=== PATIENT | female | born 1980 | race Caucasian/White ===

== ENCOUNTER 2016-07-23 00:09 | Emergency (ER) | payer BC, OTHER ==
[~2016-07-23] VITALS: Ht 154.9 cm; Wt 68.7 kg
[~2016-07-23 00:09] MED LIST: FOLI800T; IRON1TAB6; PRENTAB26 PO
[2016-07-23 00:19] VITALS: TEMP 37.4; Ht 154.9 cm; Wt 68.7 kg
[2016-07-23] MEDS ORDERED: ONDANSETRON INJ 2 MG/ML 2 ML VIAL IV STA (00:24)
[2016-07-23] MEDS ORDERED: SODIUM CHLORIDE 0.9% 1000ML 1,000 ML IV STA (00:24)
[2016-07-23] MEDS ORDERED: MoRPHine SULFATE 4 MG/ML 1 ML CARP\\VIAL IV STA (00:31)
[2016-07-23 00:47] LABS: BASO % 0.2 %; BASO ABS # 0.02 K/uL (0-0.2); COMPLETE YES; EOS % 0.4 %; HEMATOCRIT 44.8 % (37-47); IG% 0.2 %; LYMPH % 12.5 %; LYMPH ABS # 1.19 K/uL (1.2-3.4); MEAN CORPUSCULAR HEMOGLOBIN 30.9 pg (25-34); MEAN CORPUSCULAR HGB CONC 35.5 g/dl (32-36); MEAN PLATELET VOLUME 10.1 fL (7.4-10.4); NEUT % 81.7 %; PLATELET COUNT 270 K/uL (130-400); RED BLOOD COUNT 5.15 M/uL (4.2-5.4); WHITE BLOOD COUNT 9.52 K/uL (4.8-10.8)
[2016-07-23 00:54] LABS: URINE APPEARANCE CLEAR (CLEAR); URINE BILIRUBIN NEG (NEG); URINE COLOR DK YELLOW; URINE NITRITE NEG (NEG); URINE PH 5.5 (4.5-7.5); URINE SPECIFIC GRAVITY 1.026 (1.000-1.030); UROBILINOGEN NEG (NEG); ZZUR CULT IF INDIC CLEAN CATCH NO
[2016-07-23 01:06] LABS: ALT/SGPT 28 U/L (12-78); AST/SGOT 18 U/L (15-37); BLOOD UREA NITROGEN 10 mg/dl (7-18); BUN/CREATININE RATIO 10.5 (10-20); CALCIUM 8.6 mg/dl (8.5-10.1); CARBON DIOXIDE 22 mmol/L (21-32); CHLORIDE 112 mmol/L (98-107); CREATININE 0.94 mg/dl (0.60-1.20); GLUCOSE 114 mg/dl (70-99); MAGNESIUM 1.9 mg/dl (1.8-2.4); POTASSIUM 3.7 mmol/L (3.5-5.1); SODIUM 146 mmol/L (136-145)
[2016-07-23 01:09] LABS: ALKALINE PHOSPHATASE 68 U/L (45-117)
[2016-07-23 01:11] LABS: MANUAL MICROSCOPIC REQUIRED? NO; REVIEW REQ? NO
[2016-07-23] MEDS ORDERED: PANTOprazole SOD 40 MG TAB PO STA (02:20)
[2016-07-23] MEDS ORDERED: LIDOCAINE HCL 2% VISC SOLN 20 ML UDC PO STA (02:20)
[2016-07-23] MEDS ORDERED: ALUMINUM/MAGNESIUM SUSP 30 ML UDC PO STA (02:20)
[2016-07-23] MEDS ORDERED: PANT40TA PO (02:29)
[2016-07-23] MEDS ORDERED: ONDANSETRON HOME PACK 4MG OD TAB PO ONE (02:30)
[2016-07-23 02:41] VITALS: BP 97/65; PULSE 96; O2SAT 95
--- NOTE | 2016-07-23 02:43 | EMERGENCY ROOM VISIT NOTE ---
History Report prepared by Scribe: Dirk Pabon Under the Supervision of: Dr. Soraida Mccarthy M.D. First contact with patient: 00:24 Chief Complaint: ABDOMINAL PAIN Stated Complaint: SEVERE PAIN UNDER RT RIB CAGE TO BACK AND SHOULDER History of Present Illness The patient is a 36 year old female who presents to the Emergency Room with complaints of worsening right abdominal pain beginning three days ago. She localizes the pain to under her right ribcage and states that the pain wraps around her back and up her left shoulder. She also complains of vomiting, and chills. The patient admits to "heavily drinking" alcohol tonight. She estimates that she typically drinks about once a month or so, but states that she drank tonight because she "had a very bad day". She states that she vomited about an hour and a half ago. The patient denies eating anything abnormal recently, and states that she has not had anything to eat today. She notes that she smokes about a half pack of cigarettes a day. Nothing has improved her pain. Source of History: patient Onset: three days ago Position: abdomen (under right ribcage) Timing: worsening Modifying Factors (Relieving): other (none) Associated Symptoms: + chills, + vomiting Review of Systems See HPI for pertinent positives & negatives. A total of 10 systems reviewed and were otherwise negative. Past Medical & Surgical Medical Problems: (1) section (2) Premature labor (3) Family History No pertinent family history stated. Social History Smoking Status: Current Every Day Smoker Housing Status: lives with family Current/Historical Medications Scheduled Pantoprazole (Protonix), 40 MG PO DAILY Allergies Coded Allergies: Eggs or Egg-derived Products (Verified Allergy, Severe, SWOLLEN FACE/ TONGUE, 07/23/16) Penicillins (Verified Allergy, Severe, HIVES, 07/23/16) Cefaclor (Verified Allergy, Intermediate, RASH, 07/23/16) Physical Exam Vital Signs Date Time Temp Pulse Resp B/P Pulse Ox O2 Delivery O2 Flow Rate FiO2 07/23/16 02:41 96 18 97/65 95 07/23/16 02:15 96 18 97/65 Room Air 07/23/16 00:19 37.4 126 20 102/67 95 Room Air Physical Exam Vital signs reviewed. General: Well-appearing female, in no significant distress. HEENT: No scleral icterus, PERRLA, neck supple. Atraumatic. Cardiovascular: Regular rate and rhythm, no extra sounds. Pulmonary: Clear to auscultation bilaterally, normal work of breathing. Abdomen: Soft, nondistended, positive bowel sounds. Tenderness to palpation of the RUQ. No rebound or guarding. Musculoskeletal: Atraumatic, no peripheral edema. Neurologic: Patient awake alert and oriented x 3, full strength in all 4 extremities. Cranial nerves 2 through 12 grossly intact. Skin: Warm, dry, no rash Medical Decision & Procedures ER Provider Diagnostic Interpretation: US results per statrad and my review. US RUQ: No gallstones. No GB wall thickening or pericholecystic fluid. No biliary dilation. Liver and right kidney are unremarkable. No free fluid. Laboratory Results 07/23/16 00:28 Red Blood Count 5.15, Mean Corpuscular Volume 87.0, Mean Corpuscular Hemoglobin 30.9, Mean Corpuscular Hemoglobin Concent 35.5, Mean Platelet Volume 10.1, Neutrophils (%) (Auto) 81.7, Lymphocytes (%) (Auto) 12.5, Monocytes (%) (Auto) 5.0, Eosinophils (%) (Auto) 0.4, Basophils (%) (Auto) 0.2, Neutrophils # (Auto) 7.77, Lymphocytes # (Auto) 1.19, Monocytes # (Auto) 0.48, Eosinophils # (Auto) 0.04, Basophils # (Auto) 0.02 07/23/16 00:28 Test 07/23/16 00:25 07/23/16 00:28 07/23/16 00:40 Urine Color DK YELLOW Urine Appearance CLEAR (CLEAR) Urine pH 5.5 (4.5-7.5) Urine Specific [place] 1.026 (1.000-1.030) Urine Protein NEG (NEG) Urine Glucose (UA) NEG (NEG) Urine Ketones NEG (NEG) Urine Occult Blood NEG (NEG) Urine Nitrite NEG (NEG) Urine Bilirubin NEG (NEG) Urine Urobilinogen NEG (NEG) Urine Leukocyte Esterase NEG (NEG) Urine Test NEG (NEG) White Blood Count 9.52 K/uL (4.8-10.8) Red Blood Count 5.15 M/uL (4.2-5.4) Hemoglobin 15.9 g/dL (12.0-16.0) Hematocrit 44.8 % (37-47) Mean Corpuscular Volume 87.0 fL (80-100) Mean Corpuscular Hemoglobin 30.9 pg (25-34) Mean Corpuscular Hemoglobin Concent 35.5 g/dl (32-36) Platelet Count 270 K/uL (130-400) Mean Platelet Volume 10.1 fL (7.4-10.4) Neutrophils (%) (Auto) 81.7 % Lymphocytes (%) (Auto) 12.5 % Monocytes (%) (Auto) 5.0 % Eosinophils (%) (Auto) 0.4 % Basophils (%) (Auto) 0.2 % Neutrophils # (Auto) 7.77 K/uL (1.4-6.5) Lymphocytes # (Auto) 1.19 K/uL (1.2-3.4) Monocytes # (Auto) 0.48 K/uL (0.11-0.59) Eosinophils # (Auto) 0.04 K/uL (0-0.5) Basophils # (Auto) 0.02 K/uL (0-0.2) RDW Standard Deviation 42.9 fL (36.4-46.3) RDW Coefficient of Variation 13.4 % (11.5-14.5) Immature Granulocyte % (Auto) 0.2 % Immature Granulocyte # (Auto) 0.02 K/uL (0.00-0.02) Anion Gap 12.0 mmol/L (3-11) Est Creatinine Clear Calc Drug Dose 74.0 ml/min Estimated GFR () 91.1 Estimated GFR (Non- 78.6 BUN/Creatinine Ratio 10.5 (10-20) Calcium Level 8.6 mg/dl (8.5-10.1) Magnesium Level 1.9 mg/dl (1.8-2.4) Total Bilirubin 0.2 mg/dl (0.2-1) Direct Bilirubin < 0.1 mg/dl (0-0.2) Aspartate Amino Transf (AST/SGOT) 18 U/L (15-37) Alanine Aminotransferase (ALT/SGPT) 28 U/L (12-78) Alkaline Phosphatase 68 U/L (45-117) Total Protein 7.7 gm/dl (6.4-8.2) Albumin 3.9 gm/dl (3.4-5.0) Lipase 201 U/L (73-393) Ethyl Alcohol mg/dL 44.0 mg/dl (0-3) Laboratory results per my review. Medications Administered Medications (Trade) Dose Ordered Sig/Nick Route Start Time Stop Time Status Last Admin Dose Admin Sodium Chloride (Nss 1000ml) 1,000 ml @ 999 mls/hr Q1H1M STAT IV 07/23/16 00:24 07/23/16 01:24 DC 07/23/16 00:45 999 MLS/HR Ondansetron HCl (Zofran Inj) 4 mg NOW STAT IV 07/23/16 00:24 07/23/16 00:29 DC 07/23/16 00:45 4 MG Morphine Sulfate (MoRPHine SULFATE INJ) 4 mg NOW STAT IV 07/23/16 00:31 07/23/16 00:33 DC 07/23/16 00:46 4 MG Lidocaine HCl (Viscous Lidocaine 2% Soln) 10 ml NOW STAT PO 07/23/16 02:20 07/23/16 02:21 DC 07/23/16 02:27 10 ML Al Hydroxide/Mg Hydroxide (Maalox Susp) 30 ml NOW STAT PO 07/23/16 02:20 07/23/16 02:21 DC 07/23/16 02:27 30 ML Pantoprazole Sodium (Protonix Tab) 40 mg NOW STAT PO 07/23/16 02:20 07/23/16 02:21 DC 07/23/16 02:26 40 MG Ondansetron HCl (ZOFRAN ODT 4MG Home Pack) 1 homepack UD ONCE PO 07/23/16 02:30 07/23/16 02:31 DC 07/23/16 02:38 1 HOMEPACK ED Course 0024: Ordered Zofran Inj 4 mg IV, Sodium Chloride 1000 ml @ 999 mls/hr IV 0029: Past medical records reviewed. The patient was evaluated in room A9B. A complete history and physical examination was performed. 0031: Ordered Morphine Sulfate 4 mg IV. 0220: Ordered Protonix Tab 40 mg PO, Maalox Susp 30 mL PO, Lidocaine HCl 10 mL PO, Zofran Odt 4 mg Home Pack PO. 0230: Upon reevaluation, the patient appeared to have improvement of her symptoms. I discussed findings with her. The patient verbalized agreement of the treatment plan. She was discharged home. Medical Decision Differential diagnosis: Etiologies such as appendicitis, diverticulitis, PUD, biliary pathology, UTI, pancreatitis, obstruction, mesenteric ischemia, aortic pathology, infections, inflammatory bowel disease, renal colic, as well as others were entertained. This patient was evaluated and appeared to be in no significant distress. IV access was obtained and laboratory work was drawn. Patient was placed on the novelty candy maker and found to be in a normal sinus rhythm. She was hydrated with normal saline solution, given IV Zofran. Ultrasound of right upper quadrant was performed and is negative. Patient's blood alcohol content is 44. Patient was feeling much improved on my reevaluation. At this point I do not think there is acute intra-abdominal pathology. I suspect the patient is suffering from gastritis related to her heavy drinking this afternoon. She will continue a bland diet and to push plenty of clear fluids. She will follow- up with her physician for reevaluation this week and return to the ER for worsening of symptoms or any medical concerns. Impression Primary Impression: Vomiting Additional Impression: Right upper quadrant abdominal pain Scribe Attestation The scribe's documentation has been prepared under my direction and personally reviewed by me in its entirety. I confirm that the note above accurately reflects all work, treatment, procedures, and medical decision making performed by me. Departure Information Dispostion Home / Self-Care Prescriptions Pantoprazole (Protonix) 40 Mg Tab 40 MG PO DAILY, #14 TAB Prov: Soraida Mccarthy M.D. 07/23/16 Referrals No Doctor, Assigned (PCP) Forms Call Back Authorization, HOME CARE DOCUMENTATION FORM, IMPORTANT VISIT INFORMATION Patient Instructions My [facility] Additional Instructions Diagnosis: Vomiting, right upper quadrant abdominal pain Zofran 4 mg ODT every 6 hours as needed for nausea. Protonix 40 mg daily for the next 2 weeks. Drink plenty of clear fluids. Avoid excessive alcohol consumption, soda, coffee, greasy or spicy foods. Avoid aspirin, Aleve, ibuprofen Follow-up with your doctor for reevaluation this week and return to the ER for worsening of symptoms or any medical concerns. Problem Qualifiers Primary Impression: Vomiting Vomiting type: unspecified Vomiting Intractability: non-intractable Nausea presence: with nausea Qualified Codes: R11.2 - Nausea with vomiting, unspecified
--- NOTE | 2016-07-23 06:37 | DIAGNOSTIC IMAGING REPORT ---
BILIARY ULTRASOUND CLINICAL HISTORY: RUQ pain, vomiting COMPARISON STUDY: No previous studies for comparison. FINDINGS: The pancreas appears normal as visualized. The distal body and tail are poorly visualized. The gallbladder appears sonographically normal. No hepatic masses are visualized. There is no ductal dilatation. The common bile duct measures 4 mm. There is no right-sided hydronephrosis. IMPRESSION: Unremarkable biliary ultrasound. Electronically signed by: Barney Chopra M.D. 07/23/2016 6:36 AM Dictated Date/Time: 07/23/2016 6:34 AM
== END 2016-07-23 02:42 | disposition home or self-care (01) ==
LOC: C.EDB 00:11 → C.EDA 02:42
DX: R10.11 Right upper quadrant pain (principal); R11.10 Vomiting, unspecified; F17.200 Nicotine dependence, unspecified, uncomplicated; Z79.899 Other long term (current) drug therapy; Z88.0 Allergy status to penicillin; Z88.8 Allergy status to other drugs, medicaments and biological substances; Z91.012 Allergy to eggs